=== PATIENT | female | born 1985 | race Caucasian/White ===

== ENCOUNTER → 2020-03-23 | Outpatient (REF) | payer OTHER | LOC: M SFHCLUC 13:13 | PROVIDERS: ATTEND Physician Assistant | DX: N39.0 Urinary tract infection, site not specified (principal) ==

== ENCOUNTER → 2020-04-21 | Outpatient (REF) | payer OTHER | LOC: M LAB REF 17:38 | PROVIDERS: ATTEND Physician Assistant | DX: R19.7 Diarrhea, unspecified (principal) ==

== ENCOUNTER → 2020-11-04 | Outpatient (CLI) | payer OTHER ==
--- NOTE | 2020-11-04 11:47 | REP ---
INDICATION: CHEST PAIN ON BREATHING COMPARISON: None. TECHNIQUE: PA and lateral. FINDINGS: The mediastinum and cardiac silhouette are normal. The lung dodson are clear and without acute consolidation, effusion, or pneumothorax. The skeletal structures are intact and normal. IMPRESSION: No acute focal consolidation or effusion. <Electronically signed by Robbin Mcgill > 11/04/20 1142
== END ==
LOC: M WUC 10:48
PROVIDERS: ATTEND Physician Assistant
DX: R07.1 Chest pain on breathing (principal)